=== PATIENT | female | born 1950 | race Caucasian/White ===

== ENCOUNTER 2018-05-08 14:01 | Inpatient (IN) | payer MEDICARE, OTHER ==
[~2018-05-08] VITALS: Ht 167.6 cm; Wt 105.2 kg
[~2018-05-08 14:01] MED LIST: ABX; ASPIR 8181 MG PO; FLEXERIL PO; LISINOPRIL20 MG PO; LYRICA25 MG PO; NORCO 5-325 TA1 EACH PO; SIMVASTATIN40 MG PO; TRICOR145 MG PO; [UNRECOGNIZED DRUG - REMARK]
[2018-05-08 14:29] VITALS: BP 136/93
[2018-05-08] MEDS ORDERED: LISINOPRIL10 MG PO (14:33)
[2018-05-08 15:07] LABS: MCHC 32.4 g/dL (28.0-37.0); MCV 89.4 fL (80.0-100.0); MPV 9.4 fl. (7.2-11.1); RBC 4.14 mil/uL (4.20-5.00); RDW-CV 15.4 % (10.5-14.5); WBC 8.5 thou/uL (4.0-11.0)
[2018-05-08 15:18] LABS: CALCIUM 9.8 mg/dL (8.5-10.1); CREATININE 1.9 mg/dL (0.6-1.3); POTASSIUM 4.2 mmol/L (3.5-5.1)
[2018-05-08 15:52] LABS: APTT 26.1 Seconds (25.0-31.3); INR 1.1; PROTIME 10.8 Seconds (9.20-11.50)
[2018-05-08 16:01] LABS: NT-PRO BRAIN NAT PEPTIDE 83 pg/mL (<300); TROPONIN-I LEVEL <0.06 ng/mL (<0.06)
[2018-05-08 16:57] VITALS: BP 136/93
[2018-05-08 17:47] VITALS: BP 145/75
[2018-05-08 18:44] LABS: APTT 25.1 Seconds (25.0-31.3); INR 1.1; PROTIME 10.9 Seconds (9.20-11.50)
[2018-05-08 20:00] VITALS: BP 139/83
--- NOTE | 2018-05-08 20:10 | NUR ---
vss, assumed care of pt from er at 1730, ASSESSMENT PERFORMED AND CHARTED, FALL PRECAUTIONS IN PLACE AND CALL LIGHT IN REACH, PT IS A&O4 AND ON RA TRACING SR ON THE MONITOR, PT DENIES ANY PAIN AND IS UP AD MILEY, HAS SWELLING IN LLL, PT HAS HEPRINE DRIP AT 15 AND HER GOAL, HOURLY ROUNDS COMPLETED WILL FOLLOW WITH PLAN OF CARE.
[2018-05-09] VITALS: BP 123/71
[2018-05-09 00:52] LABS: HEMATOCRIT 33.5 % (37.0-47.0); HEMOGLOBIN 10.8 gm/dL (12.0-15.0); MCH 28.9 pg (26.0-34.0); MCHC 32.3 g/dL (28.0-37.0); MCV 89.5 fL (80.0-100.0); MPV 9.5 fl. (7.2-11.1); RBC 3.74 mil/uL (4.20-5.00); RDW-CV 15.6 % (10.5-14.5); WBC 8.1 thou/uL (4.0-11.0)
[2018-05-09 04:00] VITALS: BP 111/70
--- NOTE | 2018-05-09 05:00 | NUR ---
ASSUMED PT CARE AT 1930. ASSESSMENT COMPLETED CHARTED. PT ON HEPARIN DRIP CHARTED ON THE INFUSION FLOW SHEET. NO C/O PAIN OR DISCOMFORT. PT FINDING IT DIFFICULT TO SLEEP ON HOSPITAL BED. ABLE TO MAKE NEEDS KNOWN, UP AD MILEY. WILL CONTINUE TO MONITOR.
--- NOTE | 2018-05-09 07:25 | NUR ---
CHANGE OF SHIFT, BEDSIDE REPORT GIVEN PATIENT SEEN AT BEDSIDE, IN BED ASLEEP ASSUMED PATIENT CARE
[2018-05-09 08:00] VITALS: BP 150/70
--- NOTE | 2018-05-09 11:13 | EKG ---
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 Officer: [place] : 1950 Requested By: Mikie Cason Order Number: [id number] MD: Blade Thomas Measurements Intervals [place] Rate: 84 P: 42 TN: 147 QRS: -10 QRSD: 91 T: 32 QT: 359 QTc: 425 Interpretive Statements Sinus rhythm Probable left atrial enlargement Low voltage, precordial leads Compared to ECG 08/23/2017 14:51:58 Low QRS voltage now present Sinus tachycardia no longer present Electronically Signed On 05-09-2018 11:12:50 CDT by Blade Thomas [email or web address] <ELECTRONICALLY SIGNED> By: Blade Thomas MD, [facility] 05/09/18 1112 1549 1549 Blade Thomas MD, [facility] /EPI
[2018-05-09 11:42] VITALS: BP 131/72
[2018-05-09 15:02] LABS: CALCIUM 8.8 mg/dL (8.5-10.1); CREATININE 1.5 mg/dL (0.6-1.3); POTASSIUM 4.5 mmol/L (3.5-5.1)
--- NOTE | 2018-05-09 15:39 | NUR ---
Pt is A&O. Resides at home with her . Active and independent. No DME. No hx of HH or SNF. Goal is to return home at ia. No needs anticipated.
[2018-05-09 16:23] VITALS: BP 123/66
--- NOTE | 2018-05-09 18:22 | NUR ---
PATIENT REMAINS A AND O X 4 NSR CTA/DIM/RA GOOD APPETITE LAST BM T-1 GOOD UO UP INDEPENDENT IV 20 AC 20 GA HEPARIN AT 15CC/HR PER PROTOCAL NS AT 75CC/HR SKIN WITH A FEW BRUISES LLE 3+ NO C/O PAIN TODAY CONS RENAL
[2018-05-09 20:00] VITALS: BP 143/80
[2018-05-10] VITALS: BP 128/67
[2018-05-10 03:31] LABS: CALCIUM 8.9 mg/dL (8.5-10.1); CREATININE 1.5 mg/dL (0.6-1.3); POTASSIUM 4.4 mmol/L (3.5-5.1)
[2018-05-10 04:00] VITALS: BP 149/81; BP 151/68
--- NOTE | 2018-05-10 05:22 | NUR ---
ASSUMED PT CARE AT 1930. ASSESSMENT COMPLETED CHARTED. PT NOTIFIED THIS NURSE THAT SHE DIDNT WANT THE HOSPITAL EQUIVALENT OF ZOCOR AND WANTED TO USE HER HOME MEDICATION. BROUGHT MEDICATION VIA ER AROUND 10PM AND GOT ORDERS FROM DR TO GO AHEAD AND USE HOME MEDICATION INSTEAD. WILL GIVE TO PHARMACY WHEN OPENED UP. HAS HAD C/O HEADACHE SINCE 1800 AND GAVE HYDROCODONE PRN X2 WITH SOME RELIEF. HEPARIN DRIP STILL RUNNING AND UPDATED VIA FLOW SHEET. WILL CONTINUE TO MONITOR.
--- NOTE | 2018-05-10 07:20 | NUR ---
CHNAGE OF SHIFT BEDSIDE REPORT GIVEN ASSUMED PATIENT CARE PATIENT SEEN AT [facility], IN BED ASLEEP
[2018-05-10 08:00] VITALS: BP 139/79
[2018-05-10] MEDS ORDERED: XARELTO15 MG PO (10:59)
[2018-05-10] MEDS ORDERED: XARELTO20 MG PO (10:59)
[2018-05-10 13:49] VITALS: BP 120/64
[2018-05-10 14:05] VITALS: BP 120/64
--- NOTE | 2018-05-10 15:15 | NUR ---
PATIENT DISCHARGED TO HOME ALL DISCHARGE INFORMATION GIVEN AND ACKNOWLEDGED AND SIGNED COPIES GIVEN IV AND HEART MONITOR REMOVED PERSONAL BELONGINGS RETURNED ASSISTED OUT VIA GOOD CONDITION TO WAITING CAR
--- NOTE | 2018-05-11 15:52 | CON ---
[address] [address] CONSULTATION Name: MAYA BEAL Room: [address] IN ..#: [id number] Admission: 05/08/18 Attend Phys: Dilcia Mckee Discharge: 05/10/18 Date of : 52 Report #: [id number] THIS REPORT FOR: //name// CC: Daria Garay CONSULTING PHYSICIAN: David Garay DO REASON FOR CONSULTATION: Elevated creatinine. HISTORY OF PRESENT ILLNESS: The patient is a 67-year-old female who was admitted with left leg swelling, found to have a DVT and V/Q scan showing high probability of PE. She has been started on heparin drip and has underlying history of chronic kidney disease and was being followed by Dr. Lagunas. Her creatinine was a bit elevated on admission. She denies any nausea, vomiting or diarrhea. She denies any NSAID use. She is feeling comfortable, does not have any shortness of breath and is overall feeling well at present time. REVIEW OF SYSTEMS: Constitutional, psych, heme, eyes, ENT, respiratory, cardiac, GI, , endocrine, all negative except as documented above. PAST MEDICAL HISTORY: Chronic kidney disease, dyslipidemia. SOCIAL HISTORY: No alcohol. FAMILY HISTORY: Not pertinent in this 67-year-old female. CURRENT MEDICATIONS: Reviewed. PHYSICAL EXAMINATION: VITAL SIGNS: Blood pressure 123/66, pulse 80, respiration 18 and temperature 36.5. GENERAL: No acute distress. EYES: Extraocular movements intact. EARS: Externally normal. CARDIOVASCULAR: Regular rate. LUNGS: No crackles. ABDOMEN: Soft. LYMPHATICS: Nontender. PSYCHIATRIC: Awake, alert. LABORATORY DATA: Sodium 145, potassium 4.5, chloride 113, bicarbonate 25, BUN 30, creatinine 1.5, glucose 95, calcium 8.8. White cell count 8.1, hemoglobin 10.8, platelets 252. ASSESSMENT: 1. Acute kidney injury in the setting of deep venous thrombosis, [place] [address] CONSULTATION Name: MAYA BEAL Room: [address] IN [facility].#: [id number] Admission: 05/08/18 Attend Phys: Dilcia Mckee Discharge: 05/10/18 Date of : 52 Report #: [id number] embolism with admission creatinine of 1.9. 2. Chronic kidney disease, stage 3. Baseline creatinine appears to be around 1.6, it was 1.6 in 2017. She was being followed by Dr. Lagunas but since she has left the practice, she is switching to another provider. PLAN: Overall, renal function is stable. Creatinine is now at 1.5. She is being anticoagulated on a heparin drip. I have no further recommendations. She can follow up as an outpatient and will establish care with another provider and Dr. Lagunas's practice. Please call with any questions and I will sign off. <ELECTRONICALLY SIGNED> By: Cain Schaefer MD 05/11/18 1552 1657 [id number] Schaefer MD /nt
== END 2018-05-10 15:15 | disposition home or self-care (01) | DRG 299 ==
LOC: M.ERS 14:01 → M.2W 15:50 → M.TBA-ER 15:50 → M.2W 17:08
PROVIDERS: Emergency Medicine Emergency Medical Services; ADMIT Internal Medicine
DX: I82.412 Acute embolism and thrombosis of left femoral vein (principal); I26.99 Other pulmonary embolism without acute cor pulmonale; I82.432 Acute embolism and thrombosis of left popliteal vein; E78.5 Hyperlipidemia, unspecified; G89.29 Other chronic pain; I12.9 Hypertensive chronic kidney disease with stage 1 through stage 4 chronic kidney disease, or unspecified chronic kidney disease; N18.3 Chronic kidney disease, stage 3 (moderate); Z79.01 Long term (current) use of anticoagulants; Z79.82 Long term (current) use of aspirin; Z79.899 Other long term (current) drug therapy; Z88.2 Allergy status to sulfonamides

== ENCOUNTER 2018-08-05 23:18 | Inpatient (IN) | payer MEDICARE, OTHER ==
[~2018-08-05] VITALS: Ht 167.6 cm; Wt 105.2 kg
--- NOTE | ~2018-08-05 | PROC ---
[address] [address] PROCEDURE REPORT Name: MAYA BEAL Room: [address] IN .R.#: [id number] Admission: 08/06/18 Attend Phys: Reji Arredondo MD Discharge: 08/08/18 Date of : 52 Report #: [id number] THIS REPORT FOR: //name// For GI report, please see the Provation report in Perceptive 7 content. By: 0641Medical Records Staff MAGGIE /OLGA
[~2018-08-05 23:18] MED LIST changes: +LISINOPRIL10 MG PO; +XARELTO15 MG PO; +XARELTO20 MG PO
[2018-08-05 23:21] VITALS: BP 160/79
[2018-08-05] MEDS ORDERED: ELIQUIS5 MG PO (23:26)
[2018-08-05 23:46] LABS: ABSOLUTE BASOPHILS 0.1 thou/uL (0.0-0.2); ABSOLUTE EOSINOPHILS 0.3 thou/uL (0.0-0.7); ABSOLUTE LYMPHOCYTES 2.4 thou/uL (0.8-5.3); ABSOLUTE MONOCYTES 0.7 thou/uL (0.0-1.2); ABSOLUTE NEUTROPHILS 5.2 thou/uL (1.6-8.1); BASOPHILS 0.8 %; EOSINOPHILS 3.6 %; HEMATOCRIT 24.8 % (37.0-47.0); HEMOGLOBIN 7.5 gm/dL (12.0-15.0); LYMPHOCYTES 27.8 %; MCHC 30.1 g/dL (28.0-37.0); MCV 79.6 fL (80.0-100.0); MONOCYTES 8.2 %; MPV 8.6 fl. (7.2-11.1); NUCLEATED RBCS 0 /100WBC; PLATELET COUNT* 299 thou/uL (150-400); POLYS 59.6 %; RBC 3.12 mil/uL (4.20-5.00); RDW-CV 25.4 % (10.5-14.5); WBC 8.7 thou/uL (4.0-11.0)
[2018-08-05 23:52] LABS: CALCIUM 9.5 mg/dL (8.5-10.1); CREATININE 2.3 mg/dL (0.6-1.3); POTASSIUM 4.2 mmol/L (3.5-5.1)
[2018-08-05 23:54] LABS: INR 1.1; PROTIME 11.2 Seconds (9.20-11.50)
[2018-08-05 23:57] LABS: ALBUMIN 3.5 g/dL (3.4-5.0); TOTAL BILIRUBIN 0.3 mg/dL (<0.1-1.0); TOTAL PROTEIN 6.9 g/dL (6.4-8.2)
[2018-08-06 02:00] VITALS: BP 128/71
[2018-08-06 02:07] LABS: URINE BILIRUBIN NEGATIVE (Negative); URINE BLOOD 2+ (Negative); URINE CLARITY CLEAR; URINE COLOR YELLOW; URINE GLUCOSE-RANDOM NEGATIVE (Negative); URINE KETONES NEGATIVE (Negative); URINE LEUKOCYTES-REFLEX 1+ (Negative); URINE NITRITE-REFLEX NEGATIVE (Negative); URINE PROTEIN NEGATIVE (Negative); URINE SPECIFIC GRAVITY 1.015 (1.005-1.030); URINE UROBILINOGEN 0.2 E.U./dl (0.2-1.0)
[2018-08-06 02:15] VITALS: BP 129/58
[2018-08-06 02:21] LABS: CRYSTALS None Seen /LPF (None Seen); HYALINE CASTS 0-3 Few /LPF (None Seen); MUCUS 0-3 Light strn/LPF (None Seen); SQUAMOUS 0-3 Few /LPF (0-3); URINE WBC-REFLEX 6-15 Few /HPF (0-5); WBC CLUMPS Few (None Seen)
[2018-08-06 02:30] LABS: HYPOCHROMASIA 1+; MACROCYTES 1+; POLYCHROMASIA Occasional; SCHISTOCYTES Occasional
[2018-08-06 02:31] LABS: MICROCYTES 1+
--- NOTE | 2018-08-06 04:16 | NUR ---
PT RECEIVED FROM ED AT 0210. SAT MAINTAINED IN RA. ALERT AND ORIENTED X4. SR RUNNING ON TELE MONITOR. PT IS ON NPO. NO ACTIVE BLEEDING AT THE MOMENT. PT EXPLAINED ABOUT THE PLAN OF CARE. VSS AND CHARTED. WILL CONTINUE TO MONITOR.
[2018-08-06 04:27] VITALS: BP 98/59
--- NOTE | 2018-08-06 11:38 | NUR ---
VSS, ASSUMED CARE IN THE AM,ASSESSMENT PERFORMED AND CHARTED, FALL PRECAUTIONS IN PLACE AND CALL LIGHT IN REACH, PT IS A&O4 AND UP AD MILEY, ON RA AND DENIES ANY PAIN, SHE IS TRACING SR ON THE MONITOR AND HER GOAL IS TO IMPROVE HGB LEVELS, WILL FOLLOW WITH PLAN OF CARE.
[2018-08-06 11:52] VITALS: BP 125/60; BP 133/79; BP 137/70; BP 143/69
[2018-08-06 12:08] VITALS: BP 127/70
--- NOTE | 2018-08-06 12:17 | NUR ---
Pt is A&O. Resides at home with her . Normally active and independent. No DME. No hx of HH or SNF. GI consult pending. Pt stated that she was scheduled to have colonoscopy later this month, waiting to see if it will be completed during this hospital stay. Goal is home at pr. Following.
--- NOTE | 2018-08-06 18:31 | NUR ---
VSS, PT HAS NO STATUS CHANGE, SR, RA, UP AD MILEY, AND DENIES ANY PAIN, PT HAS STRATED BOWL PREP, WILL FOLLOW WITH PLAN OF CARE.
[2018-08-06 20:45] VITALS: BP 151/74
[2018-08-07] VITALS (8 sets, daily range): BP systolic 116–149; BP diastolic 48–78
[2018-08-07 04:41] LABS: ABSOLUTE EOSINOPHILS 0.3 thou/uL (0.0-0.7); ABSOLUTE LYMPHOCYTES 1.2 thou/uL (0.8-5.3); ABSOLUTE MONOCYTES 0.5 thou/uL (0.0-1.2); ABSOLUTE NEUTROPHILS 3.4 thou/uL (1.6-8.1); BASOPHILS 0.8 %; EOSINOPHILS 4.9 %; HEMATOCRIT 23.8 % (37.0-47.0); HEMOGLOBIN 7.3 gm/dL (12.0-15.0); LYMPHOCYTES 22.5 %; MCH 25.6 pg (26.0-34.0); MCHC 30.5 g/dL (28.0-37.0); MCV 83.8 fL (80.0-100.0); MONOCYTES 8.9 %; MPV 8.9 fl. (7.2-11.1); NUCLEATED RBCS 0 /100WBC; POLYS 62.9 %; RBC 2.84 mil/uL (4.20-5.00); RDW-CV 25.8 % (10.5-14.5); WBC 5.5 thou/uL (4.0-11.0)
[2018-08-07 04:47] LABS: CALCIUM 8.8 mg/dL (8.5-10.1); CREATININE 1.4 mg/dL (0.6-1.3); POTASSIUM 3.8 mmol/L (3.5-5.1)
[2018-08-07 05:01] LABS: PLATELET COUNT* 223 thou/uL (150-400)
[2018-08-07 06:02] LABS: ANISOCYTOSIS 2+; HYPOCHROMASIA 1+; MACROCYTES 1+; MICROCYTES 2+; POIKILOCYTOSIS 2+; POLYCHROMASIA Occasional
[2018-08-07 06:03] LABS: OVALOCYTES Occasional; SCHISTOCYTES 1+; TEARDROPS Occasional
--- NOTE | 2018-08-07 08:09 | NUR ---
PATIENT HAS SLEPT WELL THROUGHOUT THE NIGHT WITHOUT ANY ISSUES. NO C/O PAIN. NO NAUSEA OR VOMITING. PATIENT HAS DENIED HAVING ANY BLOOD IN HER STOOL. PATIENT HAS REMAINED NPO SINCE MIDNIGHT FOR SCHEDULED COLONOSCOPY THIS AM. PATIENT IS UP AD-MILEY TO THE BATHROOM AND STEADY. ASSESSMENT CHARTED. VSS ON RA. IV IN LEFT AC-NS @ 100ML/HR. PATIENT INSTRUCTED TO USE CALL LIGHT WHEN NEEDING ASSISTANCE. HOURLY ROUNDS MADE. WILL CONTINUE WITH PLAN OF CARE AND NURSING TO MONITOR.
--- NOTE | 2018-08-07 18:41 | NUR ---
VSS, ASSUMED CARE IN THE AM, ASSESSMENT PERFORMED AND CHARTED, FALL PRECAUTIONS IN PLACE AND CALL LIGHT IN REACH, PT IS UP AD MILEY, ON RA AND IS TRACING SR ON THE MONITOR, PT DENIES ANY PAIN, HAS COMPLETED COLON/EGD, PT GOAL HAS BEEN MET AND IS TO D/C IF HGB IS STABLE, HOURLY ROUNDS COMPLETED.
[2018-08-08 04:00] VITALS: BP 105/57
[2018-08-08 04:49] LABS: HEMATOCRIT 23.8 % (37.0-47.0); HEMOGLOBIN 7.4 gm/dL (12.0-15.0); MCH 25.9 pg (26.0-34.0); MCHC 30.9 g/dL (28.0-37.0); MCV 83.7 fL (80.0-100.0); RBC 2.84 mil/uL (4.20-5.00); RDW-CV 26.9 % (10.5-14.5); WBC 8.2 thou/uL (4.0-11.0)
--- NOTE | 2018-08-08 06:28 | NUR ---
ASSUMED PT CARE @ 1930. PT C/O BLOATING, CRAMPING, GAS PAIN SINCE COLONOSCOPY AND EGD TODAY. PT DENIES ANY BLOOD IN STOOL THIS SHIFT. PT HAS +1 EDEMA IN BLE. PT STATES "MY LYRICA CAUSES EDEMA." NS INFUSING THROUGHOUT NIGHT WITHOUT INCIDENT. PT UP AD MILEY-STEADY. PT REPORTED MASSIVE BMS AT ONSET OF SHIFT- BUT NONE SINCE BEDTIME. PT AWARE OF IRON INFUSION TODAY AND MONITORING HGB. WILL CONTINUE TO MONITOR.
[2018-08-08 07:43] VITALS: BP 134/73
[2018-08-08 11:38] VITALS: BP 134/73
[2018-08-08 12:00] VITALS: BP 145/78
--- NOTE | 2018-08-08 12:50 | NUR ---
VSS, ASSUMED CARE OF PT THIS AM, ASSESSMENT PERFORMED AND CHARTED, FALL PRECAUTIONS IN PLACE AND CALL LIGHT IN REACH, PT IS A&O4 AND UP AD MILEY AND DENIES ANY PAIN, PT IS TRACING SR ON THE MONITOR, D/C ORDERS PROVITED, WILL FOLLOW WITH PLAN OF CARE.
--- NOTE | 2018-08-09 09:43 | CON ---
[address] [address] CONSULTATION Name: BEALMAYA Kristan Room: [address] IN .R.#: [id number] Admission: 08/06/18 Attend Phys: Reij Arredondo MD Discharge: 08/08/18 Date of : 52 Report #: [id number] THIS REPORT FOR: //name// CC: Reji Kamara DATE OF SERVICE: 08/08/2018 REASON FOR CONSULTATION: Iron deficiency anemia. SUBJECTIVE: A 68-year-old female was seen previously in the clinic due to unprovoked DVT. She has been on Eliquis. However, incidental finding of severe microcytic anemia has been found and in addition to B12 deficiency. The patient was started on oral iron; however, she was not able to tolerate. She was set up to receive IV Feraheme in the clinic today. The patient was admitted and underwent an EGD, which was unremarkable. Colonoscopy showed nonbleeding colonic angiodysplastic lesions treated with APC. The patient has been taken off the Eliquis at this point. Her hemoglobin has been stable, is 7.4 this morning. The patient is feeling a little bit better today. REVIEW OF SYSTEMS: All systems were reviewed. It was negative except the above. PAST MEDICAL HISTORY: Previous DVT, pulmonary embolism, iron deficiency anemia, dyslipidemia and hypertension. MEDICATIONS: Per admission list. ALLERGIES: SULFA. SOCIAL HISTORY: No smoking, no alcohol abuse, no drug abuse. FAMILY HISTORY: Noncontributory. PHYSICAL EXAMINATION: VITAL SIGNS: Today, temperature 36.8, pulse 79, respirations 16, blood pressure is 134/73, SpO2 was 98% on room air. GENERAL: The patient was sitting in chair, was not in acute distress. LUNGS: Clear to auscultation bilaterally. HEART: Regular rate and rhythm, S1, S2 within normal limits. ABDOMEN: Soft, nontender, nondistended. EXTREMITIES: +1 edema bilaterally. LABORATORY DATA: Today, WBC 8.2, hemoglobin 7.4, platelets 198. PT is 11.2, creatinine 1.4. C-reactive protein 11.9. Previous iron profile, which was checked last 2 weeks, her ferritin was 4.8. [place] [address] CONSULTATION Name: MAYA BEAL Room: [address]#: [id number] Admission: 08/06/18 Attend Phys: Reji Arredondo MD Discharge: 08/08/18 Date of : 52 Report #: [id number] extremity showed no evidence of DVT. ASSESSMENT: A 68-year-old female who has been evaluated as an inpatient after she was found to be severely anemic. She is supposed to start IV iron today. The patient had an EGD and colonoscopy, which showed nonbleeding colonic angiodysplastic lesions. PLAN: I would like to give her one dose of IV iron while she is in the hospital. We will rearrange for her IV Feraheme later this week. We will monitor the patient more frequently. Okay to discharge today after one dose of IV iron. <ELECTRONICALLY SIGNED> By: Dasha Palma MD 08/09/18 0943 0759 1044Movenkatesh Palma MD /nt
--- NOTE | 2018-08-09 15:08 | PATH ---
[address] [address] PATHOLOGY RPT PROCEDURE Name: EVA MONTELONGO Room: [address] IN .R.#: [id number] Admission: 08/06/18 Date of : 52 Discharge: 08/08/18 Report #: [id number] Path Case #: [id number] [facility] Accession Number: [id number] . 01 Material submitted: . DUODENAL BIOPSY . 01 Clinical history: . Rule out celiac . 02 Diagnosis: Duodenal biopsy: - Normal small intestinal mucosa. . (WAQAR:vjm;08/09/2018) AGA/08/09/2018 . 02 Electronically signed: . Preet Donald MD, Pathologist NPI- [id number] . 01 Gross description: . The specimen is received in formalin, labeled "Eva Montelongo, duodenal BX" and consists of 2 fragments of soft plata tissue measuring 0.6 x 0.3 x 0.2 cm and 0.4 x 0.3 x 0.1 cm. They are entirely submitted in A1. (SDY; 08/08/2018) SYU/SYU . 02 Pathologist provided ICD-10: Z03.89 . 02 CPT . 993669 Specimen Comment: A courtesy copy of this report has been sent to Specimen Comment: [phone], , . Specimen Comment: Report sent to ,DR MAURICIO / DR TEMPLE Performed at: [address] [facility], [place], [place] [id number] MD Jaspal Boyd MD Phone: [phone] Performed at: [address] [facility] [address] [address], [place], [place] [id number] MD Preet Donald MD Phone: [phone]
--- NOTE | 2018-08-10 12:52 | CON ---
[address] [address] CONSULTATION Name: EMIGDIOMAYA M Room: [address] IN .R.#: [id number] Admission: 08/06/18 Attend Phys: Reji Arredondo MD Discharge: 08/08/18 Date of : 52 Report #: [id number] THIS REPORT FOR: //name// CC: Reji Kamara DATE OF SERVICE: 08/06/2018 HISTORY OF PRESENT ILLNESS: This is a pleasant 68-year-old female with past medical history significant for DVT, PE on chronic anticoagulation, CKD, who is presenting with bright red blood per rectum. The patient reports that yesterday night she felt some abdominal cramps and went to pass stool, when she noticed she was passing blood clots. The patient reports moderate amount of blood in the stool along with blood on wiping. She reports that this was her first such episode. She denies any such episode since. The patient reports that she was diagnosed with iron deficiency anemia in the past and had been getting iron infusions as outpatient. The patient reports that she never had an EGD or a colonoscopy in the past. The patient denies any significant abdominal pain, nausea, vomiting, dysphagia, GERD, weight loss at this time. PAST MEDICAL HISTORY: As mentioned above. The patient has a history of CKD, DVT and PE, which developed in May. The patient is on rivaroxaban. PAST SURGICAL HISTORY: The patient says she has never had an EGD or colonoscopy in the past. FAMILY HISTORY: There is no significant family history. SOCIAL HISTORY: The patient denies smoking, alcohol or recreational drug use. She lives at home with her . REVIEW OF SYSTEMS: A comprehensive 10-point review of systems is negative except for what is mentioned here. PHYSICAL EXAMINATION: VITAL SIGNS: Temperature 36.8, pulse rate 77, respirations 17, blood pressure 127/70, pulse ox 98%. GENERAL: The patient is alert, awake, oriented x 3. HEENT: Pupils are equal, round, reactive to light and accommodation. Mucous membranes are moist. NECK: There is no congestion. LUNGS: Clear to auscultation bilaterally. CARDIOVASCULAR: Rate and rhythm regular. S1, S2 present. ABDOMEN: Soft. There is no distention, no guarding, no tenderness. EXTREMITIES: Warm and well perfused. The left lower extremity appears larger than the right lower extremity. The patient reports [place] [address] CONSULTATION Name: MAYA BEAL Room: [address]#: [id number] Admission: 08/06/18 Attend Phys: Reji Arredondo MD Discharge: 08/08/18 Date of : 52 Report #: [id number] in which DVT was diagnosed. LABORATORY DATA: Hemoglobin 7.5, hematocrit 24.8, platelet count 299, WBC count 8.7. Sodium 142, potassium 4.2, chloride 108, bicarbonate 23, BUN 27, creatinine 2.3, AST 18, ALT 25, alkaline phosphatase 253, total bilirubin 0.3. INR 1.1. ASSESSMENT AND PLAN: This is a very pleasant 68-year-old female who is presenting with an episode of bright red blood per rectum. The patient was diagnosed with iron deficiency anemia as outpatient. I would recommend EGD and colonoscopy for evaluation of the iron deficiency anemia and bright red blood per rectum. The patient has never had an EGD or colonoscopy in the past. Put the patient on clear liquid diet for today and we will proceed to the procedures tomorrow. <ELECTRONICALLY SIGNED> By: Jah Portillo MD 08/10/18 1252 1358 1626Jah Portillo MD /nt
== END 2018-08-08 12:00 | disposition home or self-care (01) | DRG 377 ==
LOC: M.ERS 23:18 → M.TBA-ER 08-06 01:20 → M.2W 08-06 01:20
PROVIDERS: Emergency Medicine; ADMIT Internal Medicine
DX: K55.21 Angiodysplasia of colon with hemorrhage (principal); N17.1 Acute kidney failure with acute cortical necrosis; D62 Acute posthemorrhagic anemia; D50.9 Iron deficiency anemia, unspecified; E53.8 Deficiency of other specified B group vitamins; K64.4 Residual hemorrhoidal skin tags; G89.29 Other chronic pain; M54.9 Dorsalgia, unspecified; I12.9 Hypertensive chronic kidney disease with stage 1 through stage 4 chronic kidney disease, or unspecified chronic kidney disease; E78.5 Hyperlipidemia, unspecified; N18.9 Chronic kidney disease, unspecified; Z86.718 Personal history of other venous thrombosis and embolism; Z79.01 Long term (current) use of anticoagulants; Z88.2 Allergy status to sulfonamides; Z86.711 Personal history of pulmonary embolism

== ENCOUNTER 2018-11-15 20:47 | Inpatient (IN) | payer MEDICARE, OTHER ==
[~2018-11-15] VITALS: Ht 167.6 cm; Wt 103.0 kg
[~2018-11-15 20:47] MED LIST changes: +ELIQUIS5 MG PO
[2018-11-15 20:52] VITALS: BP 111/66
[2018-11-15 22:15] LABS: ABSOLUTE EOSINOPHILS 0.2 thou/uL (0.0-0.7); ABSOLUTE LYMPHOCYTES 1.9 thou/uL (0.8-5.3); ABSOLUTE MONOCYTES 0.6 thou/uL (0.0-1.2); ABSOLUTE NEUTROPHILS 8.5 thou/uL (1.6-8.1); BASOPHILS 0.4 %; HEMATOCRIT 33.3 % (37.0-47.0); HEMOGLOBIN 10.3 gm/dL (12.0-15.0); LYMPHOCYTES 16.9 %; MCH 26.6 pg (26.0-34.0); MCHC 30.9 g/dL (28.0-37.0); MCV 86.2 fL (80.0-100.0); MONOCYTES 5.1 %; MPV 9.6 fl. (7.2-11.1); NUCLEATED RBCS 0 /100WBC; PLATELET COUNT* 245 thou/uL (150-400); POLYS 75.6 %; RBC 3.86 mil/uL (4.20-5.00); RDW-CV 17.9 % (10.5-14.5); WBC 11.3 thou/uL (4.0-11.0)
[2018-11-15 22:29] LABS: ALBUMIN 3.2 g/dL (3.4-5.0); CALCIUM 9.3 mg/dL (8.5-10.1); CREATININE 1.8 mg/dL (0.6-1.3); POTASSIUM 4.7 mmol/L (3.5-5.1); TOTAL BILIRUBIN 0.3 mg/dL (<0.1-1.0); TOTAL PROTEIN 6.7 g/dL (6.4-8.2)
[2018-11-15 23:41] LABS: APTT 20.5 Seconds (25.0-31.3); INR 1.1; PROTIME 11.5 Seconds (9.20-11.50)
[2018-11-16 00:30] VITALS: BP 121/58
[2018-11-16 03:14] LABS: HEMATOCRIT 29.2 % (37.0-47.0); HEMOGLOBIN 9.2 gm/dL (12.0-15.0); MCH 27.1 pg (26.0-34.0); MCHC 31.6 g/dL (28.0-37.0); MCV 85.8 fL (80.0-100.0); MPV 10.1 fl. (7.2-11.1); RBC 3.41 mil/uL (4.20-5.00); RDW-CV 17.9 % (10.5-14.5); WBC 9.3 thou/uL (4.0-11.0)
[2018-11-16 03:26] LABS: CALCIUM 9.3 mg/dL (8.5-10.1); CREATININE 1.7 mg/dL (0.6-1.3); TOTAL BILIRUBIN 0.4 mg/dL (<0.1-1.0); TOTAL PROTEIN 6.3 g/dL (6.4-8.2)
[2018-11-16 07:30] VITALS: BP 129/58
[2018-11-16 12:00] VITALS: BP 106/69
[2018-11-16 16:00] VITALS: BP 122/55
[2018-11-16 20:00] VITALS: BP 119/62
[2018-11-17] VITALS: BP 114/59
[2018-11-17 08:13] VITALS: BP 111/54
--- NOTE | 2018-11-17 12:07 | CON ---
[address] [address] CONSULTATION Name: EMIGDIOMAYA M Room: [address] IN .R.#: [id number] Admission: 11/15/18 Attend Phys: Ilya Thompson MD Discharge: Date of : 52 Report #: [id number] THIS REPORT FOR: //name// CC: Ilya Kamara DATE OF SERVICE: 11/16/2018 HISTORY OF PRESENT ILLNESS: This is a 68-year-old female who underwent colonoscopy with polypectomy and also treatment of AVMs by my partner, Dr. Portillo. The patient subsequently returned to ER due to severe abdominal pain and noticing blood per rectum, which totaled little over a tablespoon. Since her ER visit, the patient had blood work, which showed anemia with hemoglobin of 10.3. This is baseline for patient. She also underwent CT of abdomen and pelvis, which revealed 2 small foci of microperforation anterior to the cecum. There was also minimal fat stranding and thickening of the lateral fascia of uncertain significance. Note that there was no air under diaphragm and there was mild hepatomegaly due to hepatic steatosis. The patient was admitted. Then, per our instruction, she was placed on IV antibiotics. We also asked to keep her n.p.o. KUB was ordered for this morning, which was essentially unremarkable with nonspecific scattered bowel gas pattern. The patient continues to have abdominal pain requiring pain meds and her belly is tender. She is able to pass gas from below. PAST MEDICAL HISTORY: Significant for history of recent colonoscopy yesterday, pulmonary embolism, rectal bleeding, chronic kidney disease, hypertension, dyslipidemia, chronic back pain, DVTs. ALLERGIES: SIGNIFICANT TO SULFA. MEDICATIONS: Please refer to MAR. SOCIAL HISTORY: The patient is and lives at home. Denies tobacco or alcohol use. LABS AND IMAGING: As discussed above. ASSESSMENT AND PLAN: The patient with what I believe is post-thermal injury during colonoscopy to the submucosa. There is no evidence of perforation. 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 I will continue IV antibiotics and watch her for another day. [place] [address] CONSULTATION Name: MAYA BEAL Room: [address] IN [facility]#: [id number] Admission: 11/15/18 Attend Phys: Ilya Thompson MD Discharge: Date of : 52 Report #: [id number] diet tomorrow and hopefully discharge her home tomorrow. The patient is agreeable with plan. <ELECTRONICALLY SIGNED> By: Dano Greer MD 11/17/18 1207 1554 0228Dano Greer MD /nt
[2018-11-17 16:00] VITALS: BP 110/63
[2018-11-17 20:00] VITALS: BP 123/63; BP 123/69
[2018-11-18] VITALS (10 sets, daily range): BP systolic 74–161; BP diastolic 33–87
[2018-11-18 02:46] LABS: ABSOLUTE EOSINOPHILS 0.2 thou/uL (0.0-0.7); ABSOLUTE LYMPHOCYTES 1.2 thou/uL (0.8-5.3); ABSOLUTE MONOCYTES 0.7 thou/uL (0.0-1.2); ABSOLUTE NEUTROPHILS 6.2 thou/uL (1.6-8.1); BASOPHILS 0.3 %; EOSINOPHILS 1.8 %; HEMATOCRIT 21.8 % (37.0-47.0); LYMPHOCYTES 14.5 %; MCH 27.1 pg (26.0-34.0); MCHC 32.1 g/dL (28.0-37.0); MCV 84.4 fL (80.0-100.0); MONOCYTES 7.9 %; MPV 9.1 fl. (7.2-11.1); NUCLEATED RBCS 0 /100WBC; PLATELET COUNT* 199 thou/uL (150-400); POLYS 75.5 %; RBC 2.59 mil/uL (4.20-5.00); RDW-CV 17.9 % (10.5-14.5); WBC 8.3 thou/uL (4.0-11.0)
[2018-11-18 02:52] LABS: CALCIUM 8.6 mg/dL (8.5-10.1); POTASSIUM 3.4 mmol/L (3.5-5.1)
[2018-11-18 02:57] LABS: ALBUMIN 2.2 g/dL (3.4-5.0); CREATININE 2.7 mg/dL (0.6-1.3); TOTAL BILIRUBIN 0.6 mg/dL (<0.1-1.0); TOTAL PROTEIN 5.1 g/dL (6.4-8.2)
[2018-11-18 08:36] LABS: HEMATOCRIT 31.8 % (37.0-47.0)
[2018-11-18 09:04] LABS: HEMOGLOBIN 9.9 gm/dL (12.0-15.0)
[2018-11-18 09:17] LABS: URINE BILIRUBIN NEGATIVE (Negative); URINE BLOOD NEGATIVE (Negative); URINE CLARITY CLEAR; URINE COLOR YELLOW; URINE GLUCOSE-RANDOM NEGATIVE (Negative); URINE KETONES TRACE (Negative); URINE LEUKOCYTES TRACE (Negative); URINE NITRITE NEGATIVE (Negative); URINE PROTEIN TRACE (Negative); URINE UROBILINOGEN 0.2 E.U./dl (0.2-1.0)
[2018-11-18 09:25] LABS: BACTERIA 1-9 Few /HPF (None Seen); CASTS None Seen /LPF (None Seen); CRYSTALS None Seen /LPF (None Seen); MUCUS 0-3 Light strn/LPF (None Seen); SQUAMOUS 4-10 Moderate /LPF (0-3); URINE RBC 0-2 Rare /HPF (0-2); URINE WBC 6-15 Few /HPF (0-5)
[2018-11-19] VITALS (14 sets, daily range): BP systolic 77–110; BP diastolic 36–56
[2018-11-19 11:07] LABS: HEMATOCRIT 31.6 % (37.0-47.0); HEMOGLOBIN 9.9 gm/dL (12.0-15.0); MCH 26.8 pg (26.0-34.0); MCHC 31.3 g/dL (28.0-37.0); MCV 85.8 fL (80.0-100.0); MPV 9.2 fl. (7.2-11.1); NUCLEATED RBCS 0 /100WBC; PLATELET COUNT* 298 thou/uL (150-400); RBC 3.68 mil/uL (4.20-5.00); RDW-CV 17.4 % (10.5-14.5); WBC 9.4 thou/uL (4.0-11.0)
[2018-11-19 11:18] LABS: ALBUMIN 2.2 g/dL (3.4-5.0); CALCIUM 8.9 mg/dL (8.5-10.1); POTASSIUM 3.8 mmol/L (3.5-5.1); TOTAL BILIRUBIN 0.6 mg/dL (<0.1-1.0); TOTAL PROTEIN 5.4 g/dL (6.4-8.2)
[2018-11-19 11:20] LABS: CREATININE 3.7 mg/dL (0.6-1.3)
[2018-11-19 11:36] LABS: ABSOLUTE LYMPHOCYTES 0.5 thou/uL (0.8-5.3); ABSOLUTE MONOCYTES 0.8 thou/uL (0.0-1.2); ABSOLUTE NEUTROPHILS 8.1 thou/uL (1.6-8.1); PLATELET ESTIMATE ADEQUATE
[2018-11-19 12:16] LABS: ESR (SEDRATE) 50 mm/hr (0-30)
[2018-11-19 12:21] LABS: URINE BILIRUBIN NEGATIVE (Negative); URINE BLOOD NEGATIVE (Negative); URINE CLARITY CLEAR; URINE COLOR YELLOW; URINE GLUCOSE-RANDOM NEGATIVE (Negative); URINE KETONES TRACE (Negative); URINE NITRITE-REFLEX NEGATIVE (Negative); URINE PROTEIN TRACE (Negative); URINE SPECIFIC GRAVITY >= 1.030 (1.005-1.030); URINE UROBILINOGEN 0.2 E.U./dl (0.2-1.0)
[2018-11-19 12:23] LABS: URINE LEUKOCYTES-REFLEX 2+ (Negative)
[2018-11-19 12:29] LABS: SQUAMOUS 0-3 Few /LPF (0-3); URINE RBC 0-2 Rare /HPF (0-2); URINE WBC-REFLEX 6-15 Few /HPF (0-5)
[2018-11-19 12:30] LABS: BACTERIA-REFLEX 1-9 Few /HPF (None Seen); CASTS None Seen /LPF (None Seen); CRYSTALS None Seen /LPF (None Seen); MUCUS 0-3 Light strn/LPF (None Seen)
[2018-11-19 13:50] LABS: BE -10.7 mmol/L (-2 to +3); PCO2 46.4 mmHg (35.0-45.0); PO2 63.3 mmHg (75.0-100.0)
[2018-11-19 13:53] LABS: pH 7.188 (7.340-7.450)
[2018-11-19 20:49] LABS: BE -11.7 mmol/L (-2 to +3)
[2018-11-19 20:52] LABS: PCO2 60.7 mmHg (35.0-45.0); pH 7.093 (7.340-7.450)
[2018-11-19 22:27] LABS: HEMATOCRIT 30.4 % (37.0-47.0); HEMOGLOBIN 9.5 gm/dL (12.0-15.0); MCH 26.8 pg (26.0-34.0); MCHC 31.1 g/dL (28.0-37.0); MCV 86.3 fL (80.0-100.0); RBC 3.53 mil/uL (4.20-5.00); RDW-CV 18.1 % (10.5-14.5); WBC 13.6 thou/uL (4.0-11.0)
[2018-11-19 22:36] LABS: CALCIUM 7.9 mg/dL (8.5-10.1); MAGNESIUM 1.2 mg/dL (1.8-2.4)
[2018-11-20] VITALS (40 sets, daily range): BP systolic 81–147; BP diastolic 42–61
[2018-11-20 05:07] LABS: HEMATOCRIT 28.2 % (37.0-47.0); MCV 84.4 fL (80.0-100.0); MPV 8.9 fl. (7.2-11.1); RBC 3.35 mil/uL (4.20-5.00); RDW-CV 17.6 % (10.5-14.5)
[2018-11-20 05:17] LABS: ALBUMIN 1.6 g/dL (3.4-5.0); CREATININE 4.1 mg/dL (0.6-1.3); MAGNESIUM 1.4 mg/dL (1.8-2.4); PHOSPHORUS* 5.8 mg/dL (2.5-4.9); POTASSIUM 3.6 mmol/L (3.5-5.1); TOTAL BILIRUBIN 0.7 mg/dL (<0.1-1.0); TOTAL PROTEIN 4.5 g/dL (6.4-8.2)
[2018-11-20 09:22] LABS: BE -13.7 mmol/L (-2 to +3); PCO2 28.9 mmHg (35.0-45.0); PO2 108.5 mmHg (75.0-100.0)
[2018-11-20 09:24] LABS: pH 7.247 (7.340-7.450)
[2018-11-20 18:40] LABS: BE -6.5 mmol/L (-2 to +3); PCO2 VENOUS 40.2 mmHg (41.0-51.0); PO2 VENOUS 40.9 mmHg (35.0-45.0)
[2018-11-20 19:07] LABS: CALCIUM 8.2 mg/dL (8.5-10.1); CREATININE 3.8 mg/dL (0.6-1.3); POTASSIUM 3.3 mmol/L (3.5-5.1)
--- NOTE | 2018-11-20 22:49 | OP ---
[address] [address] OPERATIVE REPORT Name: MAYA BEAL Room: [address] IN M.R.#: [id number] Admission: 11/15/18 Attend Phys: Ilya Thompson MD Discharge: Date of : 52 Report #: [id number] THIS REPORT FOR: //name// CC: Ilya Kamara PREOPERATIVE DIAGNOSIS: Cecal perforation. POSTOPERATIVE DIAGNOSIS: Cecal perforation. OPERATIVE PROCEDURE: Diagnostic laparoscopy, wedge resection of the cecum and closure of the perforation. OPERATING SURGEON: Jacob Loew MD VIDEO GAME ANIMATOR: Анна. INDICATIONS FOR PROCEDURE: The patient is a 68-year-old female who presented with complaints of increasing abdominal pain, especially in the right lower quadrant. She recently underwent a colonoscopy and polypectomy. Clinical exam showed features of peritonitis. The patient was advised diagnostic laparoscopy and closure of perforation. The patient showed understanding and agreed to proceed. DESCRIPTION OF PROCEDURE: After explaining to the patient in detail an informed consent was obtained. The patient was identified in the preoperative holding area. The patient was transferred to the operating room and was placed in supine position. Sequential compressive devices were placed for DVT prophylaxis. Preoperative antibiotics were given. After induction of anesthesia, the abdomen was prepped and draped in a sterile fashion. Through a left upper quadrant 1 cm incision and using Optiview technique, peritoneal cavity was entered and pneumoperitoneum was created. Thereafter, under direct vision another 5 mm trocar was placed in the left lower quadrant and another 5 mm trocar was placed in the left mid abdomen. On initial inspection, the patient was noted to have moderate amount of fecal contamination of the peritoneal cavity, most of the fluid in the right paracolic gutter, pelvis and in the right perihepatic region. This was all suctioned out. There was approximately about 300-400 mL of fecal fluid within the abdomen. The right lower quadrant region appeared phlegmonous, this was gently dissected off the omentum and the small bowel was gently dissected off and the cecum was identified. There was a perforation that was noted in the anterior aspect of the cecum. I then placed a single suture to approximate this perforation and I lifted up the suture and I then did a wedge resection of this part of the cecum using 2 purple loads on Endo-AMBER Covidien stapler. The staple line looked very good and I then oversewed the staple line with 2-0 Vicryl continuous sutures. Once this was done, I then gave thorough saline irrigation of the abdomen with at least 10 [place] [address] OPERATIVE REPORT Name: MAYA BEAL Room: [address] IN [facility]#: [id number] Admission: 11/15/18 Attend Phys: Ilya Thompson MD Discharge: Date of : 52 Report #: [id number] liters of saline. A 19-[place] TEDDY drain was placed in the pelvis and in the right lower quadrant region. Absolute hemostasis was ensured. The incisions are closed with 4-0 Monocryl. The 12 mm port site incision was closed with 3-0 Vicryl for the subcutaneous tissue. Approximately 10 mL of lidocaine and Marcaine mix was injected into all the incisions. The patient was awoken from anesthesia and was transferred to the recovery room in stable condition. ESTIMATED BLOOD LOSS: Minimal. CONDITION OF THE PATIENT: Stable. FLUIDS GIVEN: Per Anesthesia notes. SPECIMEN SENT: Wedge of the cecum. <ELECTRONICALLY SIGNED> By: Jacob Lowe MD 11/20/18 2249 1801 1821Sadrienne Lowe MD /nt
[2018-11-21] VITALS (86 sets, daily range): BP systolic 92–159; BP diastolic 36–75
[2018-11-21 03:42] LABS: ABSOLUTE BASOPHILS 0.1 thou/uL (0.0-0.2); ABSOLUTE EOSINOPHILS 0.3 thou/uL (0.0-0.7); ABSOLUTE LYMPHOCYTES 0.9 thou/uL (0.8-5.3); ABSOLUTE MONOCYTES 0.6 thou/uL (0.0-1.2); ABSOLUTE NEUTROPHILS 8.6 thou/uL (1.6-8.1); BASOPHILS 0.8 %; EOSINOPHILS 2.7 %; HEMOGLOBIN 8.8 gm/dL (12.0-15.0); LYMPHOCYTES 8.9 %; MCH 26.7 pg (26.0-34.0); MCHC 32.4 g/dL (28.0-37.0); MCV 82.3 fL (80.0-100.0); MONOCYTES 5.9 %; MPV 8.5 fl. (7.2-11.1); NUCLEATED RBCS 0 /100WBC; PLATELET COUNT* 263 thou/uL (150-400); POLYS 81.7 %; RBC 3.28 mil/uL (4.20-5.00); RDW-CV 17.8 % (10.5-14.5); WBC 10.5 thou/uL (4.0-11.0)
[2018-11-21 04:09] LABS: ALBUMIN 1.4 g/dL (3.4-5.0); CALCIUM 8.4 mg/dL (8.5-10.1); CREATININE 3.5 mg/dL (0.6-1.3); POTASSIUM 3.2 mmol/L (3.5-5.1); TOTAL BILIRUBIN 0.8 mg/dL (<0.1-1.0); TOTAL PROTEIN 4.6 g/dL (6.4-8.2)
[2018-11-21 06:02] LABS: BE -6.3 mmol/L (-2 to +3); PCO2 34.3 mmHg (35.0-45.0); PO2 86.7 mmHg (75.0-100.0); pH 7.351 (7.340-7.450)
--- NOTE | 2018-11-21 07:15 | CON ---
[address] [address] CONSULTATION Name: MAYA BEAL Room: [address] IN ..#: [id number] Admission: 11/15/18 Attend Phys: Ilya Thompson MD Discharge: Date of : 52 Report #: [id number] THIS REPORT FOR: //name// CC: Ilya Kamara DATE OF SERVICE: 11/20/2018 REQUESTING PHYSICIAN: Jacob Lowe MD REASON FOR CONSULTATION: Respiratory failure, on ventilator postop. DISCUSSION: The patient is a 68-year-old woman who returned to the Intensive Care Unit on a ventilator yesterday evening after an operative procedure. We are asked to see her. She was originally admitted on 11/15/2018. She had had rectal bleeding. This followed a colonoscopy, which had been done where she had some polyps removed. She was having abdominal pain in addition to the rectal bleeding. Was evaluated in the Emergency Department. Abdominal exam at that time was unremarkable. CT scan done at that time suggested there may be a microperforation. Some of her pain may be related to a thermal injury as she has also had some AVMs taken care of. Yesterday, however, had deteriorated, was having increasing abdominal pain as well as development of acute renal failure, metabolic acidosis. Seen again by the surgeons. Was taken to the operating room. Dr. Lowe noted she had a cecal perforation. He did a wedge resection of her cecum with closure of the perforation. She returned to the Intensive Care Unit still on the ventilator, was also requiring pressor support. She was on a fentanyl drip overnight. She is still on Levophed at the time I saw her. She has been afebrile. Systolic pressure has been generally over 90 with the Levophed going. Scant urine output. Renal has also been involved in her care. She is still on 90% oxygen on the ventilator. PAST MEDICAL HISTORY: Remarkable for left DVT and pulmonary emboli, which were diagnosed in 05/2018. Has been on Eliquis, so that was stopped several days prior to her colonoscopy. She also has a history of chronic kidney disease, chronic back pain, dyslipidemia. SOCIAL HISTORY: She is . She is a lifelong nonsmoker. FAMILY HISTORY: Currently unable to obtain from the patient. Per old records, only note is that there is no family history of colon cancer. REVIEW OF SYSTEMS: Unable to obtain from the patient given her condition. PHYSICAL EXAMINATION: [place] [address] CONSULTATION Name: MAYA BEAL Room: [address]#: [id number] Admission: 11/15/18 Attend Phys: Ilya Thompson MD Discharge: Date of : 51 Report #: [id number] GENERAL: We have a large woman. She is intubated, sedated with fentanyl. Will respond to noxious stimuli. Also, has Levophed going, has a central line in place. Orogastric tube as well as a drain from her abdomen. HEENT: Head is normocephalic. Sclerae nonicteric. Mucous membranes do look moist. NECK: No definite adenopathy is appreciated in her neck or supraclavicular areas. HEART: Regular. No S3 is heard. LUNGS: Sounds are a little coarse, but generally are clear. Excursion is equal. No wheezing is heard. ABDOMEN: Somewhat obese. Bandage is in place. The drain in place. Hsu catheter is noted. Abdomen is not rigid. LOWER EXTREMITIES: She has some trace edema noted. SCDs in place. SKIN: Warm and dry. Perfusion does appear fairly good. NEUROLOGIC: Intermittently spontaneously moving all extremities. LABORATORY AND X-RAY FINDINGS: She has not had a chest film today. Study done last night did show some mild bibasilar infiltrates or atelectasis. Endotracheal tube in position. Right IJ catheter. Renal ultrasound was done, which was unremarkable. Arterial blood gases done last night, she had a pH of 7.09, pCO2 of 61, pO2 of 113, bicarbonate of 18 with a saturation 96%. That was on the ventilator 100% oxygen. It was initially postop, do not have a blood gas from this morning. White count this morning is 10,000, hemoglobin 9.2, hematocrit 28.2, platelets 262,000. No differential was done. Yesterday, she did have a left shift. Prealbumin this morning was 8.7. On her chemistry this morning, bicarb is 20, potassium is 3.6, BUN is 35, creatinine of 4.1 (up from 3.7 yesterday morning). On admission, her creatinine was 1.8. Albumin 1.6, total protein 4.5. Lactic acid yesterday was 2.0. Reviewing some of her old records, it was 05/2018 Dopplers revealed nonocclusive DVT in the distal left femoral vein and popliteal vein. A followup imaging done in 08/2018 was negative for acute DVT. Was noted to have some slow flow, however, in the left popliteal vein. MEDICATIONS: Her current medications at this time are the Levophed, bicarbonate drip, Zosyn, atorvastatin, fentanyl drip, p.r.n. metolazone, p.r.n. hydromorphone. IMPRESSION: 1. Acute respiratory failure. Initially was having fairly high O2 needs, though chest film was fairly unremarkable last night. Done from this morning is pending. Did have a marked metabolic acidosis with a component of a respiratory acidosis as well. 2. Status post cecal resection for cecal perforation. 3. Metabolic acidosis. Secondary to sepsis as well as acute renal failure. 4. Acute renal failure superimposed [place] [address] CONSULTATION Name: MAYA BEAL Kristan Room: [address] IN [facility].#: [id number] Admission: 11/15/18 Attend Phys: Ilya Thompson MD Discharge: Date of : 51 Report #: [id number] 5. Prior history of left deep vein thrombosis and pulmonary emboli (05/2018). Followup Dopplers in August were negative for acute findings. Had been on anticoagulation therapy up until prior to her colonoscopy. 6. Anemia. RECOMMENDATIONS: 1. Currently is running at fairly high airway pressures. We will drop her tidal volume, increase rate and follow up blood gases. 2. Continue with supportive care. It is not clear how soon she will be ready for active weaning trials. 3. Start DuoNeb. 4. Defer management of bicarbonate drip, fluid status to Renal Service. Depending on her renal status, may ultimately require at least short-term dialysis or CRRT. 5. Antibiotics per ID. 6. Given her history of thrombosis, we want to start DVT prophylaxis when stable. Currently, does have SCDs on. <ELECTRONICALLY SIGNED> By: Julienne Salazar MD 11/21/18 0715 0810 [id number] Salazar MD /nt
--- NOTE | 2018-11-21 10:31 | CON ---
[address] [address] CONSULTATION Name: MAYA BEAL Room: [address] IN .R.#: [id number] Admission: 11/15/18 Attend Phys: Ilya Thompson MD Discharge: Date of : 52 Report #: [id number] THIS REPORT FOR: //name// CC: Ilya Kamara DATE OF SERVICE: 11/20/2018 ATTENDING PHYSICIAN: Dr. Thompson. CONSULTATION REQUESTED BY: Dr. Disla. REASON FOR CONSULTATION: Perforated cecum, antibiotic management. HISTORY OF PRESENT ILLNESS: A 68-year-old white woman is diagnosed to have a perforated cecum, she undergoes exploratory laparotomy by Dr. Lowe and she has closure of the perforated cecum. The patient is in the ICU on mechanical ventilator, receiving Levophed. She is on coverage with Zosyn and meropenem. All information on the patient is gathered from the review of her records. DRUG ALLERGIES: SULFA DRUGS. MEDICATIONS: The patient is on treatment with Zosyn 3.375 grams IV every 12 hours, meropenem 500 mg IV every 12 hours, sodium bicarbonate infusion, p.r.n. fentanyl, midazolam, hydromorphone, tramadol, acetaminophen, ondansetron, receiving intravenous Levophed and normal saline, very little urine output. PAST MEDICAL HISTORY: DVT. Gastrointestinal bleeding. Previous pulmonary embolism. Colonoscopy. History of perforated cecum requiring exploratory laparotomy. SOCIAL HISTORY: Unable to obtain. FAMILY HISTORY: Unable to obtain. REVIEW OF SYSTEMS: Unable to obtain. PHYSICAL EXAMINATION: GENERAL: Overweight woman, responds to painful stimuli. VITAL SIGNS: Temperature 98.9, pulse 79, respirations 18, BP 98/43, O2 saturation 98% on FiO2 of 90%. HEENMT: Head normocephalic, atraumatic. Pupils are equal and reactive. Mouth unable to examine because of orotracheal intubation. NECK: Supple. CHEST: Right-sided central venous catheter. LUNGS: [place] [address] CONSULTATION Name: MAYA BEAL Kristan Room: [address] IN ..#: [id number] Admission: 11/15/18 Attend Phys: Ilya Thompson MD Discharge: Date of : 51 Report #: [id number] HEART: S1, S2. No gallop or murmur. ABDOMEN: TEDDY in place, left lower quadrant. Midline laparotomy wound, dressings intact. Abdomen mildly distended. PELVIC AND RECTAL: Deferred. Hsu catheter in place, 200 mL urine output since surgery. EXTREMITIES: No clubbing, cyanosis. NEUROLOGIC: Unable to evaluate. LABORATORY DATA: Sodium 141, potassium 4, CO2 is 21, BUN 36, creatinine 4, glucose 145, magnesium 1.2 mg/dL, albumin 2.2 g/dL. WBC 13,600, hemoglobin 9.5 g/dL, platelets 311,000. White blood cell count differential revealed 36% bands. Urinalysis revealed pyuria and bacteriuria. Cultures are all pending. ABGs revealed pH 7.09, pCO2 of 60, pO2 of 113, bicarbonate 18. This set of gases is on mechanical ventilator, tidal volume 500, 5 of PEEP. RADIOLOGY EVALUATION: Chest x-ray, basilar atelectasis, infiltrate, unchanged compared to previously. CT abdomen and pelvis revealed sigmoid diverticulosis with no diverticulitis, tiny amount of free pelvic fluid. An abdominal x-ray on the 16 revealed orogastric tube in distal stomach. ASSESSMENT: 1. Status post exploratory laparotomy for perforated cecum. 2. Respiratory failure, mechanical ventilator dependent. 3. Acute kidney injury on chronic kidney disease. 4. SULFA DRUG ALLERGY. 5. Colonic diverticula. 6. Gastrointestinal bleeding. SUGGESTIONS: Recommend continued broad-spectrum antibiotic coverage, may discontinue meropenem. Continue Zosyn 3.375 grams IV every [address] Disla, thank you for requesting my suggestions. <ELECTRONICALLY SIGNED> By: Glenroy Montalvo MD 11/21/18 1031 0443 [id number] Montalvo MD /nt
[2018-11-22] VITALS (52 sets, daily range): BP systolic 86–168; BP diastolic 37–76
[2018-11-22 05:19] LABS: HEMATOCRIT 25.9 % (37.0-47.0); HEMOGLOBIN 8.4 gm/dL (12.0-15.0); MCH 26.7 pg (26.0-34.0); MCHC 32.4 g/dL (28.0-37.0); MCV 82.4 fL (80.0-100.0); MPV 8.7 fl. (7.2-11.1); NUCLEATED RBCS 0 /100WBC; PLATELET COUNT* 289 thou/uL (150-400); RBC 3.14 mil/uL (4.20-5.00); RDW-CV 18.1 % (10.5-14.5); WBC 10.1 thou/uL (4.0-11.0)
[2018-11-22 05:43] LABS: ALBUMIN 1.3 g/dL (3.4-5.0); CALCIUM 8.6 mg/dL (8.5-10.1); CREATININE 2.8 mg/dL (0.6-1.3); TOTAL BILIRUBIN 0.8 mg/dL (<0.1-1.0); TOTAL PROTEIN 4.6 g/dL (6.4-8.2)
[2018-11-22 05:58] LABS: POTASSIUM 2.9 mmol/L (3.5-5.1)
[2018-11-22 06:02] LABS: BE -0.4 mmol/L (-2 to +3); PCO2 34.5 mmHg (35.0-45.0); PO2 77.3 mmHg (75.0-100.0); pH 7.449 (7.340-7.450)
[2018-11-22 06:20] LABS: ABSOLUTE EOSINOPHILS 0.4 thou/uL (0.0-0.7); ABSOLUTE LYMPHOCYTES 1.1 thou/uL (0.8-5.3); ABSOLUTE MONOCYTES 0.4 thou/uL (0.0-1.2); ABSOLUTE NEUTROPHILS 8.2 thou/uL (1.6-8.1)
[2018-11-22 06:22] LABS: ANISOCYTOSIS 1+; PLATELET ESTIMATE ADEQUATE
[2018-11-22 13:17] LABS: ABSOLUTE BASOPHILS 0.1 thou/uL (0.0-0.2); ABSOLUTE EOSINOPHILS 0.4 thou/uL (0.0-0.7); ABSOLUTE MONOCYTES 0.7 thou/uL (0.0-1.2); ABSOLUTE NEUTROPHILS 8.1 thou/uL (1.6-8.1); BASOPHILS 0.5 %; EOSINOPHILS 4.2 %; HEMATOCRIT 24.3 % (37.0-47.0); MCHC 32.9 g/dL (28.0-37.0); MCV 82.2 fL (80.0-100.0); MONOCYTES 6.7 %; MPV 8.6 fl. (7.2-11.1); NUCLEATED RBCS 0 /100WBC; PLATELET COUNT* 272 thou/uL (150-400); POLYS 78.6 %; RBC 2.95 mil/uL (4.20-5.00); RDW-CV 17.5 % (10.5-14.5); WBC 10.4 thou/uL (4.0-11.0)
[2018-11-22 13:27] LABS: CALCIUM 8.7 mg/dL (8.5-10.1); CREATININE 2.5 mg/dL (0.6-1.3); POTASSIUM 3.5 mmol/L (3.5-5.1)
[2018-11-23] VITALS (24 sets, daily range): BP systolic 99–159; BP diastolic 44–73
[2018-11-23 09:40] LABS: BE -3.5 mmol/L (-2 to +3); PCO2 31.8 mmHg (35.0-45.0); PO2 66.5 mmHg (75.0-100.0); pH 7.419 (7.340-7.450)
--- NOTE | 2018-11-23 18:06 | PATH ---
[facility] [address] [place] [address] PATHOLOGY RPT PROCEDURE Name: EVA MONTELONGO Room: [address] IN M.R.#: [id number] Admission: 11/15/18 Date of : 52 Discharge: Report #: [id number] Path Case #: [id number] [facility] Accession Number: [id number] . 01 Material submitted: . PARTIAL CECUM . 01 Clinical history: . Colon perforation Cecal perforation . 02 Diagnosis: Colon, "partial cecum", excision: - Segment of colonic mucosa with acute and chronic serositis and findings consistent with perforation. - Extensive submucosal adipose tissue present. . (SKM:mml; 11/22/2018) QLM/11/22/2018 . 02 Electronically signed: . Gordy Scott MD, Pathologist NPI- [id number] . 01 Gross description: . The specimen is received in formalin, labeled "Eva Montelongo, partial cecum" and consists of a segment of yellow lobulated tissue with the margin closed with a line of barbara measuring 4.0 x 1.1 x 0.8 cm. A suture is present at a possible site of perforation which is surrounded by green exudate. Also present are thick adhesions. The line of barbara is removed (inked black) and the specimen is serially sectioned and entirely submitted in A1-A2. Gross pictures are taken. (SDY; 11/21/2018) SYU/SYU . 02 Pathologist provided ICD-10: K63.1, K65.8 . 02 CPT . 934312 Specimen Comment: A courtesy copy of this report has been sent to Specimen Comment: [phone], , . Specimen Comment: Report sent to ,DR HADDAD / DR TEMPLE Performed at: [address], [place] [id number] MD Jaspal Boyd MD Phone: [phone] Performed at: [address] [place] [address] PATHOLOGY RPT PROCEDURE Name: EVA MONTELONGO Room: [address] ADM IN M.R.#: [id number] Admission: 11/15/18 Date of : 52 Discharge: Report #: [id number] Path Case #: [id number] [facility] [address] [id number] MD Jeffrey Patton MD Phone: [phone]
[2018-11-24] VITALS (25 sets, daily range): BP systolic 127–166; BP diastolic 43–85
[2018-11-24 04:49] LABS: CALCIUM 9.5 mg/dL (8.5-10.1); CREATININE 2.4 mg/dL (0.6-1.3); POTASSIUM 4.6 mmol/L (3.5-5.1)
[2018-11-24 08:00] LABS: HEMATOCRIT 23.5 % (37.0-47.0); HEMOGLOBIN 7.2 gm/dL (12.0-15.0); MCHC 30.8 g/dL (28.0-37.0); MPV 9.8 fl. (7.2-11.1); RBC 2.68 mil/uL (4.20-5.00); RDW-CV 18.5 % (10.5-14.5); WBC 12.6 thou/uL (4.0-11.0)
[2018-11-24 08:10] LABS: MCV 87.6 fL (80.0-100.0)
[2018-11-24 08:49] LABS: BE -2.3 mmol/L (-2 to +3); PCO2 37.3 mmHg (35.0-45.0); PO2 87.3 mmHg (75.0-100.0); pH 7.394 (7.340-7.450)
[2018-11-25] VITALS (18 sets, daily range): BP systolic 131–173; BP diastolic 55–98
[2018-11-25 03:23] LABS: HEMATOCRIT 22.1 % (37.0-47.0); MCHC 31.7 g/dL (28.0-37.0); MPV 9.3 fl. (7.2-11.1); RBC 2.69 mil/uL (4.20-5.00); RDW-CV 17.4 % (10.5-14.5); WBC 15.9 thou/uL (4.0-11.0)
[2018-11-25 03:55] LABS: ALBUMIN 1.5 g/dL (3.4-5.0); CALCIUM 9.8 mg/dL (8.5-10.1); CREATININE 2.4 mg/dL (0.6-1.3); MAGNESIUM 1.9 mg/dL (1.8-2.4); POTASSIUM 3.3 mmol/L (3.5-5.1); TOTAL BILIRUBIN 0.5 mg/dL (<0.1-1.0); TOTAL PROTEIN 4.9 g/dL (6.4-8.2)
[2018-11-25 04:10] LABS: MCV 82.2 fL (80.0-100.0)
[2018-11-25 12:22] LABS: BE 2.4 mmol/L (-2 to +3); PCO2 38.7 mmHg (35.0-45.0); PO2 73.9 mmHg (75.0-100.0); pH 7.452 (7.340-7.450)
[2018-11-26] VITALS (24 sets, daily range): BP systolic 127–192; BP diastolic 61–127
[2018-11-26 03:41] LABS: HEMATOCRIT 23.1 % (37.0-47.0); HEMOGLOBIN 7.4 gm/dL (12.0-15.0); MCH 26.3 pg (26.0-34.0); MCHC 31.9 g/dL (28.0-37.0); MCV 82.5 fL (80.0-100.0); MPV 8.9 fl. (7.2-11.1); RBC 2.8 mil/uL (4.20-5.00); RDW-CV 17.9 % (10.5-14.5); WBC 17.5 thou/uL (4.0-11.0)
[2018-11-26 03:56] LABS: ALBUMIN 1.6 g/dL (3.4-5.0); CALCIUM 9.1 mg/dL (8.5-10.1); CREATININE 2.3 mg/dL (0.6-1.3); MAGNESIUM 1.7 mg/dL (1.8-2.4); PHOSPHORUS* 5.1 mg/dL (2.5-4.9); POTASSIUM 3.6 mmol/L (3.5-5.1)
[2018-11-26] MEDS ORDERED: [UNRECOGNIZED DRUG - OTHER] PO (13:31)
[2018-11-26] MEDS ORDERED: ELIQUIS5 MG PO (13:37)
[2018-11-27] VITALS (23 sets, daily range): BP systolic 129–176; BP diastolic 54–82
[2018-11-28] VITALS (18 sets, daily range): BP systolic 131–177; BP diastolic 53–97
[2018-11-28 09:07] LABS: BE 1.9 mmol/L (-2 to +3); PO2 69.7 mmHg (75.0-100.0); pH 7.489 (7.340-7.450)
--- NOTE | 2018-11-28 13:52 | CON ---
[address] [address] CONSULTATION Name: EMIGDIOMAYA M Room: [address] ADM IN .R.#: [id number] Admission: 11/15/18 Attend Phys: Ilya Thompson MD Discharge: Date of : 51 Report #: [id number] THIS REPORT FOR: //name// CC: Ilya Lowe DATE OF SERVICE: 11/26/2018 HISTORY OF PRESENT ILLNESS: This is a 68-year-old female patient who was evaluated by me as a part of code stroke. I talked to the nurses multiple times. I talked to the patient's . The patient is completely confused and she is not able to answer any questions, in fact she did not have much speech output for me. The saw this patient yesterday, but he did not notice any facial weakness. He saw her again today and he did not notice any facial weakness and that was noticed by the nurses. The time of onset is not clear in this patient even after talking to multiple people. A code stroke was called and the patient was taken for CT scan, but this patient did not cooperate with the CT scan and the CT scan has a lot of motion. REVIEW OF SYSTEMS: Indicate that this patient apparently does not have any history of stroke in the past. She is admitted with GI perforation as I understand and is being managed by multiple consultants. She is extremely confused and her sodium is 158, her creatinine is 2.2, which in fact has improved over a period of time. This was the relevant 14-point review of system. As mentioned above, she is being followed by multiple consultants and I reviewed those notes. PAST MEDICAL HISTORY: Negative for stroke as I understand. FAMILY HISTORY: Negative for any early-age stroke. SOCIAL HISTORY: She is and the was here and I talked to him mostly. PHYSICAL EXAMINATION: GENERAL: Indicate that the patient is alert. NEUROLOGIC: She does not follow any commands. Both me and the tried to ask her to smile or show us her teeth, but she will not do it. Therefore, I cannot assess if she has any facial weakness or not. She definitely moves the left upper extremities and appeared to be moving about the same as on the right side. She does not follow commands, do anything about the lower extremity. VITAL SIGNS: Her blood pressure was a trace high as I understand from the nurses, but it has been running in reasonable [place] [address] CONSULTATION Name: MAYA BEAL Room: [address] IN [facility]#: [id number] Admission: 11/15/18 Attend Phys: Ilya Thompson MD Discharge: Date of : 51 Report #: [id number] IMAGING: CT scans were reviewed and is as described above. IMPRESSION: It is not possible to tell if this patient had a stroke or not. She obviously has a severe encephalopathy and still has pretty significant metabolic disturbances, especially hypernatremia and renal dysfunction. They can all cause encephalopathy. It will be very difficult to tell when the stroke occurs in the presence of encephalopathy. Even if the patient had a stroke, for which we are not certain, there is not much we can do. Time of onset is not clear and that management is going to be very limited. We cannot even do a CT in this patient and it will be impossible to do an MRI in this patient, especially we do not have any MRI compatible monitor and we cannot do on the patient under conscious sedation anymore. CT angiogram is not possible because she is barely recovering from the renal failure. I am reluctant to give her any medication like aspirin because I am not certain it is a stroke and I do not want to aggravate her GI condition. She is supposed to be on anticoagulation, but that will be started whenever the surgeon feels comfortable. RECOMMENDATIONS: 1. Correct the metabolic problems, especially hypernatremia because that can give rise to central pontine myelinolysis. 2. We will get EEG done. 3. Whenever the surgeon feel comfortable, anticoagulation or antithrombotic therapy can be started. I discussed all of it with the patient's and discussed the options in that regard and he is agreeable with this plan. Thank you very much for this referral. <ELECTRONICALLY SIGNED> By: Rupert Whittaker MD 11/28/18 1352 1602 0920Rupert Whittaker MD /nt
--- NOTE | 2018-11-28 13:52 | EEG ---
[address] [address] EEG STUDY REPORT Name: MAYA BEAL Room: [address] IN .R.#: [id number] Admission: 11/15/18 Attend Phys: Ilya Thompson MD Discharge: Date of : 51 Report #: [id number] THIS REPORT FOR: //name// CC: Ilya Lowe DATE OF SERVICE: 11/26/2018 This patient is being evaluated for altered mental status. EEG was done by placing the electrodes by standard 10-20 system of electrode placement. Both referential and sequential montages were used for recording. Background activity in this patient's EEG is about 6-7 Hz and 30 microvolt. This is a symmetrical activity. Photic stimulation is unremarkable. The patient has triphasic waves in the frontal area. IMPRESSION: This patient's study is consistent with severe generalized encephalopathy with triphasic waves. Thank you very much for this referral. <ELECTRONICALLY SIGNED> By: Rupert Whittaker MD 11/28/18 1352 1647 1655Rupert Whittaker MD /nt
[2018-11-28] MEDS ORDERED: LYRICA 75 MG CA75 MG PO (17:07)
[2018-11-29] VITALS: BP 154/61
[2018-11-29 04:00] VITALS: BP 151/65
[2018-11-29 06:25] LABS: ALBUMIN 1.9 g/dL (3.4-5.0); CALCIUM 9.2 mg/dL (8.5-10.1); PHOSPHORUS* 5.1 mg/dL (2.5-4.9); POTASSIUM 3.6 mmol/L (3.5-5.1)
[2018-11-29 07:30] VITALS: BP 119/74
[2018-11-29 10:20] LABS: HEMATOCRIT 24.1 % (37.0-47.0); HEMOGLOBIN 7.4 gm/dL (12.0-15.0); MCH 26.2 pg (26.0-34.0); MCHC 30.8 g/dL (28.0-37.0); NUCLEATED RBCS 0 /100WBC; PLATELET COUNT* 387 thou/uL (150-400); RBC 2.84 mil/uL (4.20-5.00); RDW-CV 17.8 % (10.5-14.5)
[2018-11-29 10:23] LABS: CALCIUM 8.8 mg/dL (8.5-10.1)
[2018-11-29 10:39] LABS: ABSOLUTE LYMPHOCYTES 0.8 thou/uL (0.8-5.3); ABSOLUTE NEUTROPHILS 10.2 thou/uL (1.6-8.1); ATYPICAL LYMPHS 1 %; PLATELET ESTIMATE ADEQUATE
[2018-11-29 11:52] VITALS: BP 174/72
[2018-11-29 15:53] VITALS: BP 157/76
[2018-11-29 20:00] VITALS: BP 146/59
[2018-11-30] VITALS: BP 135/56
[2018-11-30 04:00] VITALS: BP 120/69; BP 150/66
[2018-11-30 07:30] VITALS: BP 148/58
[2018-11-30 10:45] LABS: ABSOLUTE BASOPHILS 0.1 thou/uL (0.0-0.2); ABSOLUTE LYMPHOCYTES 1.3 thou/uL (0.8-5.3); ABSOLUTE MONOCYTES 0.7 thou/uL (0.0-1.2); ABSOLUTE NEUTROPHILS 10.3 thou/uL (1.6-8.1); BASOPHILS 0.5 %; HEMATOCRIT 23.9 % (37.0-47.0); HEMOGLOBIN 7.2 gm/dL (12.0-15.0); LYMPHOCYTES 10.5 %; MCH 25.8 pg (26.0-34.0); MONOCYTES 5.5 %; MPV 9.9 fl. (7.2-11.1); NUCLEATED RBCS 0 /100WBC; PLATELET COUNT* 422 thou/uL (150-400); POLYS 83.5 %; RBC 2.78 mil/uL (4.20-5.00); RDW-CV 18.1 % (10.5-14.5); WBC 12.4 thou/uL (4.0-11.0)
[2018-11-30 10:48] LABS: CALCIUM 9.3 mg/dL (8.5-10.1); POTASSIUM 3.2 mmol/L (3.5-5.1)
[2018-11-30 12:00] VITALS: BP 135/76
[2018-11-30 16:00] VITALS: BP 121/55
[2018-11-30 20:00] VITALS: BP 123/97
[2018-12-01] VITALS: BP 121/58
[2018-12-01 04:00] VITALS: BP 145/69
[2018-12-01 05:11] LABS: HEMATOCRIT 24.5 % (37.0-47.0); HEMOGLOBIN 7.6 gm/dL (12.0-15.0); MCHC 31.1 g/dL (28.0-37.0); MCV 83.8 fL (80.0-100.0); MPV 9.3 fl. (7.2-11.1); RBC 2.92 mil/uL (4.20-5.00); RDW-CV 17.9 % (10.5-14.5); WBC 13.1 thou/uL (4.0-11.0)
[2018-12-01 05:17] LABS: CREATININE 1.7 mg/dL (0.6-1.3); MAGNESIUM 1.9 mg/dL (1.8-2.4); POTASSIUM 3.7 mmol/L (3.5-5.1)
[2018-12-01 08:25] VITALS: BP 156/72
[2018-12-01 16:00] VITALS: BP 140/65
[2018-12-01 19:12] LABS: CREATININE 1.8 mg/dL (0.6-1.3); POTASSIUM 3.4 mmol/L (3.5-5.1)
[2018-12-01 20:00] VITALS: BP 136/64
[2018-12-02] VITALS: BP 128/49
[2018-12-02 04:00] VITALS: BP 135/61
[2018-12-02 08:00] VITALS: BP 148/68
[2018-12-02 12:00] VITALS: BP 139/69
[2018-12-02 15:12] VITALS: BP 139/69
--- NOTE | 2018-12-03 15:47 | CON ---
[address] [address] CONSULTATION Name: EMIGDIOMAYA M Room: [address] IN ..#: [id number] Admission: 11/15/18 Attend Phys: Ilya Thompson MD Discharge: 12/02/18 Date of : 51 Report #: [id number] THIS REPORT FOR: //name// CC: Ilya Kamara DATE OF SERVICE: 11/20/2018 CONSULTING PHYSICIAN: Dr. Disla. REASON FOR NEPHROLOGY CONSULTATION: Acute kidney injury on chronic kidney disease. REASON FOR ADMISSION: Increasing abdominal pain. HISTORY OF PRESENT ILLNESS: This is a 68-year-old female and it looks like she has a past medical history of chronic kidney disease. Her baseline creatinine could be 1.4-1.6. She has history of hypertension who had a recent colonoscopy 4 days before coming to the hospital and had polypectomy done as well. She came in with increasing abdominal pain and an abdominal CT scan showed a possible cecal microperforation. Her abdominal pain kept getting worse and with abdominal distention and she became acidotic with worsening renal function. She was also hypotensive with blood pressure as low as 88/50. The creatinine worsened to 3.7 as of yesterday and then 4.0 yesterday night and is 4.1 this morning. The patient is oliguric. The patient had to be taken for surgery last night where she had resection of the microperforation area done and repair of the cecum done. She is currently intubated on 80% FiO2 on the vent and oxygen requirement has been slowly decreasing. It looks like she was on lisinopril and it was continued until . She is currently on Levophed. She is also getting antibiotics. ALLERGIES: SULFA. REVIEW OF SYSTEMS: Cannot obtain because she is intubated and sedated. HOME MEDICATIONS: Include lisinopril, fenofibrate, simvastatin, pregabalin. PAST MEDICAL AND SURGICAL HISTORY: Include chronic back pain and chronic kidney disease stage 3, baseline creatinine 1.4-1.6. She is on anticoagulation for DVT in the legs and pulmonary embolism, hypertriglyceridemia, left brachial arm surgery. FAMILY HISTORY: "We don't know." SOCIAL HISTORY: The patient could not give me the social history. When I looked at the patient's chart, it does not look like she smokes, [place] [address] CONSULTATION Name: MAYA BEAL Room: [address] IN [facility]#: [id number] Admission: 11/15/18 Attend Phys: Ilya Thompson MD Discharge: 12/02/18 Date of : 51 Report #: [id number] or use illicit drugs. PHYSICAL EXAMINATION: VITAL SIGNS: Blood pressure, currently she is on Levophed, is 114/51, temperature 37.1, pulse rate is 94, pulse ox 98%, she is on 80% FiO2. GENERAL: She is intubated, sedated on ventilator. HEAD, EYES, EARS, NOSE AND THROAT: She has NG tube in place. NECK: I could not see JVD. CHEST: Bilateral decreased breath sounds. No crackles or wheezing. CARDIOVASCULAR: S1, S2 normal. No murmurs. ABDOMEN: Currently soft, is mildly distended and she has a clean dressing placed on the left lower quadrant. Bowel sounds are diminished. EXTREMITIES: There is no lower extremity edema, symmetrical lower extremities. NEUROLOGICAL FUNCTION: She is sedated. PSYCHIATRIC: Cannot assess. LABORATORY DATA: Hemoglobin is 9.0, WBC 10.0, platelet count is 262. Potassium is 3.6, sodium is 141, CO2 is 20, creatinine is 4.1, BUN is 75. Other labs are reviewed. IMAGING: Renal ultrasound and other imaging studies were reviewed. Renal ultrasound did not show any acute abnormalities. ASSESSMENT: 1. Acute kidney injury in the setting of septic shock and also she was on lisinopril and she is oliguric. There is no acute indication for dialysis yet. Baseline creatinine is 1.4-1.6 and creatinine is 4.1 today. UA shows evidence of trace protein with 2+ leukocyte esterase, 1-9 bacteria, 6-5 wbc's. Urine culture is pending. There is no significant hematuria on the urinalysis. 2. Septic shock, intestinal etiology because of microperforation of her cecum, which has now been repaired status post repair of that yesterday, which is 11/19/2018. She is on antibiotics and she is also getting IV fluids. 3. Metabolic acidosis. She is on bicarbonate drip. 4. Hypomagnesemia. 5. Stool for occult blood positive, likely connected to the colon perforation. 6. Acute respiratory failure. The patient was intubated during her surgery for colon perforation. PLAN: 1. Continue pressor support to maintain MAP around 70. Continue half normal saline with 75 mg of sodium bicarbonate at 75 mL an hour. 2. Kidney function is stable. Hopefully, will start improving soon and there is no acute need for dialysis yet. 3. I have replaced the magnesium. Thank you for this consultation. I did spend more than 35 [place] [address] CONSULTATION Name: MAYA BEAL Room: [address] IN [facility]#: [id number] Admission: 11/15/18 Attend Phys: Ilya Thompson MD Discharge: 12/02/18 Date of : 52 Report #: [id number] patient's critical care. This time was spent in reviewing the patient's chart and placing orders and discussion with primary team and examining the patient. We will continue to follow along with you. <ELECTRONICALLY SIGNED> By: Katelyn Vazquez MD 12/03/18 1547 0941 [id number] Vazquez MD /nt
== END 2018-12-02 16:00 | DRG 853 ==
LOC: M.ERS 20:47 → M.ICU 23:41 → M.2W 23:41 → M.TBA-ER 23:41 → M.2W 11-16 01:58 → M.ICU 11-19 12:26 → M.2W 11-28 21:56
PROVIDERS: Internal Medicine; Internal Medicine Critical Care Medicine; Internal Medicine Gastroenterology; Internal Medicine Nephrology; Internal Medicine Pulmonary Disease; Nurse Practitioner Family; ADMIT Internal Medicine
DX: A41.9 Sepsis, unspecified organism (principal); R65.21 Severe sepsis with septic shock; N17.0 Acute kidney failure with tubular necrosis; K35.32 Acute appendicitis with perforation, localized peritonitis, and gangrene, without abscess; K57.21 Diverticulitis of large intestine with perforation and abscess with bleeding; J96.01 Acute respiratory failure with hypoxia; G92 Toxic encephalopathy; K62.5 Hemorrhage of anus and rectum; J98.11 Atelectasis; E87.0 Hyperosmolality and hypernatremia; Z99.11 Dependence on respirator [ventilator] status; G89.29 Other chronic pain; M54.9 Dorsalgia, unspecified; E78.5 Hyperlipidemia, unspecified; D64.9 Anemia, unspecified; E83.42 Hypomagnesemia; N63.0 Unspecified lump in unspecified breast; N18.3 Chronic kidney disease, stage 3 (moderate); I95.9 Hypotension, unspecified; E87.6 Hypokalemia; E66.9 Obesity, unspecified; I12.9 Hypertensive chronic kidney disease with stage 1 through stage 4 chronic kidney disease, or unspecified chronic kidney disease; R73.9 Hyperglycemia, unspecified; J04.0 Acute laryngitis; E87.70 Fluid overload, unspecified; Z88.2 Allergy status to sulfonamides; Z86.711 Personal history of pulmonary embolism; Z86.718 Personal history of other venous thrombosis and embolism; Z68.36 Body mass index [BMI] 36.0-36.9, adult; Z79.899 Other long term (current) drug therapy

== ENCOUNTER 2018-12-02 14:21 | Inpatient (IN) | payer MEDICARE, OTHER ==
[~2018-12-02] VITALS: Ht 167.6 cm; Wt 74.4 kg
[~2018-12-02 14:21] MED LIST changes: +LYRICA 75 MG CA75 MG PO; +[UNRECOGNIZED DRUG - OTHER] PO
[2018-12-02 16:30] VITALS: BP 148/66
[2018-12-02 20:10] VITALS: BP 174/77
[2018-12-03] VITALS (8 sets, daily range): BP systolic 131–150; BP diastolic 54–77
[2018-12-03 09:09] LABS: HEMATOCRIT 27.8 % (37.0-47.0); HEMOGLOBIN 8.6 gm/dL (12.0-15.0); MCH 26.2 pg (26.0-34.0); MCHC 30.9 g/dL (28.0-37.0); MPV 9.2 fl. (7.2-11.1); RBC 3.27 mil/uL (4.20-5.00); RDW-CV 18.6 % (10.5-14.5); WBC 11.4 thou/uL (4.0-11.0)
[2018-12-03 09:23] LABS: CALCIUM 9.8 mg/dL (8.5-10.1); CREATININE 1.7 mg/dL (0.6-1.3); POTASSIUM 3.6 mmol/L (3.5-5.1)
[2018-12-04 08:28] VITALS: BP 143/78
[2018-12-04 20:00] VITALS: BP 161/68
[2018-12-05 09:28] VITALS: BP 141/71
[2018-12-05 19:54] VITALS: BP 168/91
[2018-12-05 21:03] LABS: URINE BILIRUBIN NEGATIVE (Negative); URINE BLOOD 1+ (Negative); URINE CLARITY CLEAR; URINE COLOR YELLOW; URINE GLUCOSE-RANDOM NEGATIVE (Negative); URINE KETONES NEGATIVE (Negative); URINE LEUKOCYTES-REFLEX TRACE (Negative); URINE NITRITE-REFLEX NEGATIVE (Negative); URINE PROTEIN NEGATIVE (Negative); URINE UROBILINOGEN 0.2 E.U./dl (0.2-1.0)
[2018-12-05 21:53] LABS: SQUAMOUS >10 Many /LPF (0-3)
[2018-12-05 21:54] LABS: CASTS None Seen /LPF (None Seen); URINE RBC 0-2 Rare /HPF (0-2); URINE WBC-REFLEX 0-5 Rare /HPF (0-5)
[2018-12-05 21:55] LABS: BACTERIA-REFLEX 1-9 Few /HPF (None Seen); CRYSTALS None Seen /LPF (None Seen)
[2018-12-06 07:55] VITALS: BP 146/76
[2018-12-06 20:18] VITALS: BP 153/74
[2018-12-07 08:19] VITALS: BP 137/70
[2018-12-07 20:30] VITALS: BP 150/74
[2018-12-08 08:00] VITALS: BP 147/76
[2018-12-08 20:15] VITALS: BP 148/75
[2018-12-09 05:57] VITALS: BP 149/54
[2018-12-09 08:00] VITALS: BP 157/91
[2018-12-09 09:53] VITALS: BP 149/54
--- NOTE | 2018-12-12 12:22 | PLAN ---
[address] [address] REHAB UNIT PLAN OF CARE Name: MAYA BEAL Room: [address] IN [facility].#: [id number] Admission: 12/02/18 Attend Phys: Kenyatta Mallory DO Discharge: 12/09/18 Date of : 52 Report #: [id number] THIS REPORT FOR: //name// CC: Kenyatta Kamara This is a female admitted to inpatient rehabilitation status post acute hospitalization where she had prolonged and complicated medical stay post colectomy with postoperative complications, needs physical and occupational therapy as well as speech and language pathology. Previous level of function was modified independent to independent with activities of daily living. Current level of function is minimum assistance of 1-2 depending on therapy, activity and time of day. Estimated length of stay is short stay, 3-5 days unless slower than expected progress in which case, would recommend 7-9 days with discharge disposition to the home setting. MEDICAL PROGNOSIS: Good. REHABILITATION PROGNOSIS: Good. Physical Therapy will see the patient 60-90 minutes per day, 5 days per week, working on upper and lower body strength, balance, coordination, navigation. Occupational Therapy will work with the patient 60-90 minutes per day, 5 days per week, working on upper and lower body strength, balance, coordination, navigation, bathing, dressing, and toileting. Speech and Language Pathology will work with the patient 30-90 minutes per day, 5 days per week, working on memory, cognition, expression, and problem solving. This is an overall plan of care, may change from time to time. We will team weekly and make changes to plan of care as needed. <ELECTRONICALLY SIGNED> By: Kenyatta Mallory DO 12/12/18 1222 1821 [id number] Mallory DO /nt
--- NOTE | 2018-12-12 12:22 | H ---
[address] [address] HISTORY AND PHYSICAL Name: MAYA BEAL Room: [address] M.R.#: [id number] Admission: 12/02/18 Attend Phys: Kenyatta Mallory DO Discharge: 12/09/18 Date of : 52 Report #: [id number] THIS REPORT FOR: //name// CC: Kenyatta Kamara DATE OF SERVICE: 12/02/2018 HISTORY OF PRESENT ILLNESS: This is a female admitted to inpatient rehabilitation to facilitate safe discharge home, status post acute hospitalization where she did undergo colectomy, complicated medical stay, prolonged medical stay with increased debility, alterations in activities of daily living from previous level of modified independent to independent with activities of daily living. She is participating with therapies, has physical and occupational therapy needs as well as speech and language pathology. No changes since the preadmission screening. Current level of function is minimum assistance of 1-2 depending on therapy, activity and time of day. Estimated length of stay is 3-5 days or 9-11 days depending on therapy, activity and progression as well as family training. PAST MEDICAL HISTORY: Unchanged from consultation. ALLERGIES: Unchanged from consultation. SOCIAL HISTORY: Unchanged from consultation. FAMILY HISTORY: Unchanged from consultation. MEDICATIONS: Reviewed and reconciled by myself and are available in the MAR. REVIEW OF SYSTEMS: A 14-point review of systems is done today, is negative except as mentioned in the HPI, specifically no fever, chest pain, shortness of breath, abdominal pain or distention. PHYSICAL EXAMINATION: GENERAL: Alert, oriented, in no apparent distress. VITAL SIGNS: Reviewed and are stable. HEENT: Head atraumatic, normocephalic. Pupils equal, round, reactive. ABDOMEN: Soft, nontender, nondistended. NEUROLOGIC: Cranial nerves 2-12 are grossly intact. No focal neuro deficits, 5/5 strength in the bilateral upper and lower extremities. SKIN: Warm and dry. No rashes or lesions noted. ASSESSMENT: 1. Debility status post prolonged and complicated acute hospital stay. 2. Status post colectomy [place] [address] HISTORY AND PHYSICAL Name: MAYA BEAL Room: [address] IN ..#: [id number] Admission: 12/02/18 Attend Phys: Kenyatta Mallory DO Discharge: 12/09/18 Date of : 52 Report #: [id number] 3. Alterations in activities of daily living. PLAN: 1. Admission to inpatient rehabilitation to facilitate safe discharge home. 2. PT, OT, speech, language, case management, nursing and HIMS to make evaluations and recommendations. 3. Plan of care is pending and we will team her weekly. 4. Caregiver training and pain control. <ELECTRONICALLY SIGNED> By: Kenyatta Mallory DO 12/12/18 1222 1819 [id number] Mallory DO /lee
== END 2018-12-09 13:46 | disposition home health service (06) | DRG 70 ==
LOC: M.REH 14:21
PROVIDERS: ADMIT Physical Medicine & Rehabilitation
DX: G93.41 Metabolic encephalopathy (principal); A41.9 Sepsis, unspecified organism; R65.20 Severe sepsis without septic shock; K35.32 Acute appendicitis with perforation, localized peritonitis, and gangrene, without abscess; N17.0 Acute kidney failure with tubular necrosis; E87.2 Acidosis; R53.81 Other malaise; G89.29 Other chronic pain; M54.9 Dorsalgia, unspecified; E88.09 Other disorders of plasma-protein metabolism, not elsewhere classified; N18.3 Chronic kidney disease, stage 3 (moderate); Z90.49 Acquired absence of other specified parts of digestive tract; Z88.2 Allergy status to sulfonamides; Z90.710 Acquired absence of both cervix and uterus; Z79.899 Other long term (current) drug therapy